=== PATIENT | male | born 1960 | race Caucasian/White ===

== ENCOUNTER 2016-10-23 06:55 | Day surgery (SDC) | payer BC ==
[2016-10-23] MEDS ORDERED: Sodium Chloride 0.9% 10 ML Syringe FLUSH PRN (07:00)
[2016-10-23] MEDS ORDERED: Lactated Ringers 1,000 ML IV SCH (07:00)
[2016-10-23] MEDS ORDERED: Midazolam 1 MG/ML 2 ML SDV IV ONE (08:10)
[2016-10-23] MEDS ORDERED: Propofol 200 MG/20 ML SDV IV ONE (08:10)
--- NOTE | 2016-10-23 08:38 | PCM.OPNOTE ---
- General Post-Op/Procedure Note Date of Surgery/Procedure: 10/23/16 Operative Procedure(s): c scope with bx Findings: transverse colon polyp Pre Op Diagnosis: colon cancer screening Post-Op Diagnosis: transverse colon polyp Anesthesia Technique: MAC Primary Surgeon: Markos Garcia Anesthesia Provider: America Jackman Pathology: transverse colon polyp Complications: None Condition: Good Free Text/Narrative:: see dictation
--- NOTE | 2016-10-23 09:21 | OR ---
DATE OF OPERATION: 10/23/2016 SURGEON: Markos Garcia MD PROCEDURE PERFORMED: Colonoscopy with cold forceps biopsy. PREOPERATIVE DIAGNOSIS: Need for colon cancer screening. POSTOPERATIVE DIAGNOSIS: Transverse colon polyp. INDICATIONS FOR PROCEDURE: This is a 55-year-old white male, who presents for a screening colonoscopy. He was offered and accepted same. DESCRIPTION OF OPERATION: After an excellent IV sedation was administered, a digital rectal exam was performed. No marked abnormality was noted. The flexible colonoscope was inserted and advanced to the cecum without difficulty. The prep was excellent. The following findings were noted. Ascending colon, unremarkable. Transverse colon, at the distal transverse colon, a small polypoid lesion biopsied with the 5 mm biopsy forceps and sent for permanent. Descending colon, unremarkable. Sigmoid and rectum unremarkable. Colon was deflated, scope was removed. The patient tolerated the procedure well and was taken to recovery in good condition. /[id number] /AMARAL
[2016-10-23 10:45] VITALS: BP 109/76
== END 2016-10-23 09:31 | disposition home or self-care (01) ==
LOC: FB.SDS 06:55
PROVIDERS: ATTEND Surgery
DX: Z12.11 Encounter for screening for malignant neoplasm of colon (principal); K63.5 Polyp of colon; Z79.2 Long term (current) use of antibiotics; Z79.899 Other long term (current) drug therapy; Z98.890 Other specified postprocedural states
CPT/HCPCS: 45380; 88305; J2250; J2704; J7120

== ENCOUNTER 2022-12-15 22:54 | Emergency (ER) | payer OTHER, BC ==
[2022-12-15] MEDS ORDERED: Aspirin 81 MG Tab.Chew PO ONE (23:16)
[2022-12-15] MEDS ORDERED: Sodium Chloride 0.9% 10 ML Syringe FLUSH PRN (23:16)
[2022-12-15] MEDS ORDERED: Sodium Chloride 0.9% 1,000 ML IV SCH (23:30)
[2022-12-15 23:37] LABS: BLOOD UREA NITROGEN,BUN 19 mg/dL (7-18); BUN/CREATININE RATIO 13.6 (9-20); CALCIUM 8.8 mg/dL (8.6-10.2); CARBON DIOXIDE,CO2 32 mmol/L (21-32); CHLORIDE,CL 104 mmol/L (100-110); CREATININE 1.4 mg/dL (0.70-1.30); ESTIMATED GFR 58 mL/min (>60); GLUCOSE RANDOM 117 mg/dL (80-116); POTASSIUM,K 3.8 mmol/L (3.5-5.3); SODIUM,NA 143 mmol/L (135-145)
[2022-12-15 23:43] LABS: A/G RATIO 1.1; ALANINE AMINOTRANSFERASE,ALT 30 U/L (12-36); ALBUMIN 3.7 g/dL (3.2-4.6); ALKALINE PHOSPHATASE 82 IU/L (56-112); ASPARTATE AMNIOTRANSFERASE,AST 21 IU/L (5-25); BILIRUBIN TOTAL 0.5 mg/dL (0.1-1.3); MAGNESIUM 2.3 mg/dL (1.8-2.5); PROTEIN TOTAL,TP 7.2 g/dL (6.0-8.0)
[2022-12-16] MEDS ORDERED: Ondansetron 4 MG/2 ML SDV IVPUSH ONE (00:03)
[2022-12-16] MEDS: Nitroglycerin 0.4 MG Tab.SL SL PRN ×2 (00:08→00:35)
[2022-12-16 00:12] LABS: BASOPHILS PERCENT AUTO 0.2 % (0.3-3.8); EOSINOPHILS ABSOLUTE AUTO 0.2 x10-3/uL (0.0-0.6); EOSINOPHILS PERCENT AUTO 2.3 % (0.1-6.8); HEMATOCRIT 42.6 % (38.3-50.1); HEMOGLOBIN 14.5 g/dL (12.9-17.7); LYMPHOCYTES ABSOLUTE AUTO 1.2 x10-3/uL (0.5-4.5); LYMPHOCYTES PERCENT AUTO 13.2 % (15.8-45.3); MEAN CORPUSCULAR HEMOGLOBIN 29.6 pg (27.0-33.3); MEAN CORPUSCULAR VOLUME 87.1 fL (80.8-98.7); MEAN PLATELET VOLUME 9.5 fL (6.7-11.0); MONOCYTES ABSOLUTE AUTO 0.9 x10-3/uL (0.0-1.2); MONOCYTES PERCENT AUTO 9.3 % (5.5-15.2); NEUTROPHILS ABSOLUTE AUTO 6.9 x10-3/uL (1.7-6.9); PLATELET COUNT,PLT 192 x10(3)uL (117-477); RED BLOOD CELL COUNT 4.89 x10(6)uL (3.90-5.90); RED CELL DISTRIBUTION WIDTH 13.2 % (12.4-15.0); WHITE BLOOD CELL COUNT,WBC 9.2 x10-3/uL (3.2-10.1)
[2022-12-16 03:27] VITALS: PULSE 76
[2022-12-16] MEDS ORDERED: Pantoprazole 40 MG Tab.CR PO ONE (03:39)
[2022-12-16 10:12] VITALS: BP 162/101
== END 2022-12-16 04:05 | disposition home or self-care (01) ==
LOC: FB.ED 22:54
DX: K21.00 Gastro-esophageal reflux disease with esophagitis, without bleeding (principal); I10 Essential (primary) hypertension; Z79.899 Other long term (current) drug therapy
CPT/HCPCS: 36415; 71046; 80053; 83735; 84484; 85025; 85379; 93005; 96361; 96374; 99285; A9270; J2405; J7030

== ENCOUNTER 2022-12-30 07:51 | Day surgery (SDC) | payer OTHER, BC ==
[~2022-12-30 07:51] MED LIST: Sodium Chloride 0.9% 10 ML Syringe FLUSH PRN
[2022-12-30] MEDS ORDERED: Lidocaine 2% 5 ML SDV ONE (07:52)
[2022-12-30] MEDS ORDERED: Lidocaine 2% 5 ML SDV IV ONE (07:52)
[2022-12-30] MEDS ORDERED: Propofol 200 MG/20 ML SDV IV ONE (07:52)
[2022-12-30] MEDS: Lactated Ringers 1,000 ML IV SCH (08:46)
[2022-12-30 10:41] VITALS: BP 135/86; PULSE 54
== END 2022-12-30 10:24 | disposition home or self-care (01) ==
LOC: FB.SDS 07:51
PROVIDERS: ATTEND Surgery
DX: K29.50 Unspecified chronic gastritis without bleeding (principal); K31.89 Other diseases of stomach and duodenum; R63.4 Abnormal weight loss; R63.0 Anorexia; Z68.27 Body mass index [BMI] 27.0-27.9, adult
CPT/HCPCS: 00731; 88305; 88342; J2704; J7120